=== PATIENT | male | born 1980 | race Caucasian/White ===

== ENCOUNTER 2017-03-25 17:29 | Emergency (ER) | payer SELFPAY ==
[~2017-03-25] VITALS: Ht 167.6 cm; Wt 63.5 kg
[2017-03-25] MEDS ORDERED: NAPROSYN500 MG PO (20:05)
[2017-03-25] MEDS ORDERED: FLEXERIL10 MG PO (20:05)
[2017-03-25 20:18] VITALS: BP 132/78
== END 2017-03-25 20:19 | disposition home or self-care (01) ==
LOC: EME 17:29 → RME 17:29
DX: S46.912A Strain of unspecified muscle, fascia and tendon at shoulder and upper arm level, left arm, initial encounter (principal); X50.9XXA Other and unspecified overexertion or strenuous movements or postures, initial encounter; R11.2 Nausea with vomiting, unspecified; Z72.0 Tobacco use
CPT/HCPCS: 73030; 99281; 99283